=== PATIENT | female | born 1980 | race Two or more races ===

== ENCOUNTER 2020-06-17 00:05 | Emergency (ER) | payer OTHER ==
[~2020-06-17] VITALS: Ht 162.6 cm; Wt 60.3 kg
[2020-06-17] MEDS ORDERED: ALBUTEROL0.63 MG/3 (00:09)
[2020-06-17] MEDS ORDERED: SYMBICORT 16010.2 GM IH (14:24)
[2020-06-17] MEDS ORDERED: VITAMIN C500 M6 PO (14:24)
[2020-06-17] MEDS ORDERED: ZINC GLUCONATE100 MG PO (14:24)
[2020-06-17] MEDS ORDERED: PROAIR RESPICL90 MCG IH (14:24)
[2020-06-17] MEDS ORDERED: MELATONIN10 MG PO (14:24)
[2020-06-17] MEDS ORDERED: SINGULAIR10 MG PO (14:24)
[2020-06-17] MEDS ORDERED: DERMACINRX5000 UNIT PO (14:24)
== END 2020-06-17 16:46 | disposition home or self-care (01) ==
LOC: ER 00:05
DX: U07.1 COVID-19 (principal); R06.02 Shortness of breath; J45.998 Other asthma